=== PATIENT | female | born 1980 ===

== ENCOUNTER → 2017-06-07 | Outpatient (CLI) | payer BC | END | disposition home or self-care (01) | LOC: LAB EV 10:26 → LAB SHORT 10:26 | DX: J02.9 Acute pharyngitis, unspecified (principal) | CPT/HCPCS: 87070; 87147 ==

== ENCOUNTER → 2018-04-04 | Outpatient (CLI) | payer SELFPAY ==
[2018-04-04 17:09] LABS: Alanine Aminotransfer (ALT/SGP 73 U/L (12-78); Albumin, Blood 3.7 g/dL (3.4-5.0); Alk Phos 70 U/L (50-136); Anion Gap 5 mmol/L (6-16); Aspartate Aminotrans (AST/SGOT 25 U/L (12-37); Bilirubin, Total 0.4 mg/dL (0.1-1.0); Blood Urea Nitrogen 13 mg/dL (8-24); Bun/Creatinine Ratio 23.3 (12.0-20.0); CO2, Blood 27 mmol/L (21-32); Chloride, Blood 106 mmol/L (98-108); Creatinine, Blood 0.56 mg/dL (0.40-1.00); Free Thyroxine 1.67 ng/dL (0.70-1.60); Globulin, Blood 3.8 g/dL (2.2-4.0); Glomerular Filtration Rate >60 (60-); Glucose, Blood 85 mg/dL (70-99); Potassium, Blood 3.9 mmol/L (3.5-5.5); Sodium, Blood 138 mmol/L (136-145); Total Protein, Blood 7.5 g/dL (6.4-8.2)
[2018-04-04 17:13] LABS: Thyroid Stimulating Hormone <0.005 uIU/mL (0.360-4.800)
== END ==
LOC: LAB SHORT 16:14 → LAB 16:14
PROVIDERS: Family Medicine
DX: I10 Essential (primary) hypertension (principal)
CPT/HCPCS: 80053; 84439; 84443